=== PATIENT | female | born 1985 | race Caucasian/White ===

== ENCOUNTER 2022-07-04 08:14 | Emergency (ER) | payer MEDICAID ==
[~2022-07-04] VITALS: Ht 154.9 cm; Wt 78.5 kg
[2022-07-04 08:25] VITALS: BP 90/57
--- NOTE | 2022-07-04 08:30 | NUR ---
BIB SELF C/O LUMP LEFT LABIA & PAIN , YELLOWISH DISCHARGE X 6 MONTHS. PMH: PSORIASIS, LIVER CIRRHOSIS
--- NOTE | 2022-07-04 08:33 | NUR ---
PT AMB TO BED 6.
[2022-07-04] MEDS ORDERED: IBUPROFEN 600 MG TAB PO ONE (08:45)
[2022-07-04] MEDS ORDERED: cefTRIAXone 500 MG in LIDOCAINE MPF 1% 1 ML IM ONE (08:45)
--- NOTE | 2022-07-04 08:46 | NUR ---
LIAT Humphries accompanied Dr. Ni for Pelvic Exam.
[2022-07-04] MEDS ORDERED: LIDOCAINE MPF 1% 5 ML ONE (08:56)
[2022-07-04] MEDS ORDERED: cefTRIAXone 500 MG VIAL ONE (08:56)
[2022-07-04] MEDS ORDERED: VALA1TAB40 PO (08:57)
[2022-07-04] MEDS ORDERED: METR-435 PO (08:57)
[2022-07-04] MEDS ORDERED: DOXY-690 PO (08:57)
[2022-07-04] MEDS ORDERED: IBUP-2213 PO (08:57)
[2022-07-04 09:52] VITALS: BP 124/72
--- NOTE | 2022-07-04 09:52 | NUR ---
Patient discharged with v/s stable. Written and verbal after care instructions given. Patient alert, oriented and verbalized understanding of instructions. Ambulatory with steady gait. All questions addressed prior to discharge. ID band removed. Patient advised to follow up with PMD. Rx of Vibramycin, Ibuprofen, Metronidazole and Valacyclovir given. Opportunity to ask questions provided and answered. WROK NOTE HANDED TO PATIENT.
--- NOTE | 2022-07-04 09:53 | NUR ---
Chart checked and completed. The patient's care was reviewed and supervised by Raisa Singh RN.
== END 2022-07-04 09:52 | disposition home or self-care (01) ==
LOC: MED 08:14
DX: N89.8 Other specified noninflammatory disorders of vagina (principal); B00.1 Herpesviral vesicular dermatitis
CPT/HCPCS: 81002; 81025; 87110; 87210; 87299; 96372; 99283; J0696; J2001